=== PATIENT | female | born 1945 | race Caucasian/White ===

== ENCOUNTER 2017-05-11 08:26 | Outpatient (CLI) | payer BC | END 2017-05-11 08:27 | disposition home or self-care (01) | LOC: BICULT 08:26 | PROVIDERS: ATTEND Internal Medicine Gastroenterology | DX: K21.9 Gastro-esophageal reflux disease without esophagitis (principal); R19.4 Change in bowel habit; R14.0 Abdominal distension (gaseous); R11.2 Nausea with vomiting, unspecified | CPT/HCPCS: 76700 ==

== ENCOUNTER 2018-11-18 14:54 | Outpatient (CLI) | payer BC ==
--- NOTE | 2018-11-18 15:46 | RAD ---
CERVICAL SPINE THREE VIEWS: 11/18/18 HISTORY: Chronic neck pain. FINDINGS: C7 is obscured on the lateral view and C1 and C2 odontoid are partially obscured on the AP open mouth study. Generalized disc osteophytosis and facet arthrosis. No prevertebral soft tissue swelling. IMPRESSION: Cervical spondylosis. POS: [facility]
== END 2018-11-18 14:55 | disposition home or self-care (01) ==
LOC: SCSRAD 14:54
PROVIDERS: ATTEND Nurse Practitioner Family
DX: M54.2 Cervicalgia (principal); M47.812 Spondylosis without myelopathy or radiculopathy, cervical region
CPT/HCPCS: 72040

== ENCOUNTER 2020-11-08 14:23 | Outpatient (CLI) | payer BC, MEDICARE | END 2020-11-08 14:24 | disposition home or self-care (01) | LOC: BICMAMMO 14:23 | PROVIDERS: ATTEND Student in an Organized Health Care Education/Training Program | DX: Z13.820 Encounter for screening for osteoporosis (principal); M85.851 Other specified disorders of bone density and structure, right thigh; M85.852 Other specified disorders of bone density and structure, left thigh | CPT/HCPCS: 77080 ==

== ENCOUNTER 2021-03-15 08:08 | Outpatient (CLI) | payer BC, MEDICARE | END 2021-03-15 08:09 | disposition home or self-care (01) | LOC: NM 08:08 | PROVIDERS: ATTEND Internal Medicine Gastroenterology | DX: K21.9 Gastro-esophageal reflux disease without esophagitis (principal); K58.9 Irritable bowel syndrome, unspecified; R10.12 Left upper quadrant pain; R11.2 Nausea with vomiting, unspecified | CPT/HCPCS: 78264; A9541 ==

== ENCOUNTER 2021-12-26 11:22 | Outpatient (CLI) | payer BC, MEDICARE | END 2021-12-26 11:23 | disposition home or self-care (01) | LOC: SCSMRI 11:22 | PROVIDERS: ATTEND Orthopaedic Surgery | DX: M54.50 Low back pain, unspecified (principal); M51.36 Other intervertebral disc degeneration, lumbar region | CPT/HCPCS: 72148 ==

== ENCOUNTER 2022-02-17 10:37 | Outpatient (CLI) | payer BC, MEDICARE ==
[~2022-02-17 10:37] MED LIST: Iopamidol-370 76% 500 ML 1 ML ONE
== END 2022-02-17 10:38 | disposition home or self-care (01) ==
LOC: BICCT 10:37
PROVIDERS: ATTEND Physician Assistant Medical
DX: K21.9 Gastro-esophageal reflux disease without esophagitis (principal); R63.0 Anorexia; R63.4 Abnormal weight loss; N28.89 Other specified disorders of kidney and ureter; R91.8 Other nonspecific abnormal finding of lung field
CPT/HCPCS: 74177; Q9967

== ENCOUNTER 2022-10-21 14:29 | Outpatient (CLI) | payer BC, MEDICARE ==
[~2022-10-21 14:29] MED LIST changes: +Iopamidol 370 76% 100 ML VIAL ONE; -Iopamidol-370 76% 500 ML 1 ML ONE
== END 2022-10-21 14:30 | disposition home or self-care (01) ==
LOC: BICCT 14:29
PROVIDERS: ATTEND Internal Medicine Gastroenterology
DX: R91.8 Other nonspecific abnormal finding of lung field (principal); I70.0 Atherosclerosis of aorta
CPT/HCPCS: 71260; Q9967

== ENCOUNTER 2023-03-17 12:04 | Outpatient (CLI) | payer BC, MEDICARE ==
[2023-03-17 14:05] LABS: Hematocrit 35.3 % (34.9-44.5); Hemoglobin 11.2 g/dL (12.0-15.5); Mean Corpuscular HGB CONC 31.7 g/dL (32.0-36.0); Mean Corpuscular Hemoglobin 28.6 pg (27.0-33.0); Mean Corpuscular Volume 90.1 fl (81.6-98.3); Mean Platelet Volume 9.8 fl (7.4-10.4); Platelet Count 256 10x3/uL (150-450); RBC Distribution Width 13.3 % (11.5-14.5); Red Blood Cell (RBC) Count 3.92 10x6/uL (3.90-5.03); White Blood Cell (WBC) Count 5.5 10x3/uL (3.5-10.5)
[2023-03-17 14:13] LABS: INR-International Normal Ratio 0.9; PTT 27.8 sec (22.0-33.0)
[2023-03-17 14:31] LABS: ALT (SGPT) 28 U/L (8-55); AST (SGOT) 23 U/L (5-34); Albumin 4.5 g/dL (3.4-4.8); Alkaline Phosphatase 63 U/L (40-110); Anion Gap 13 mmol/L (10-20); BUN (Urea Nitrogen) 22 mg/dL (9.8-20.1); Bilirubin, Total 0.2 mg/dL (0.2-1.2); Calc. Creatinine Clearance 0 mL/min (70-130); Calcium 9.3 mg/dL (7.8-10.44); Carbon Dioxide 27 mmol/L (23-31); Chloride 103 mmol/L (98-107); Estimated GFR 78; Glucose 93 mg/dL (83-110); Potassium 4.3 mmol/L (3.5-5.1); Protein, Total 7.5 g/dL (5.8-8.1); Sodium 139 mmol/L (136-145)
== END 2023-03-17 12:05 | disposition home or self-care (01) ==
LOC: LABBT 12:04
PROVIDERS: ATTEND Student in an Organized Health Care Education/Training Program
DX: Z01.818 Encounter for other preprocedural examination (principal); J98.59 Other diseases of mediastinum, not elsewhere classified
CPT/HCPCS: 80053; 85027; 85610; 85730; 93005; 93010

== ENCOUNTER 2023-04-06 13:14 | Outpatient (CLI) | payer BC, MEDICARE | END 2023-04-06 13:15 | disposition home or self-care (01) | LOC: RAD 13:14 | PROVIDERS: ATTEND Student in an Organized Health Care Education/Training Program | DX: J98.59 Other diseases of mediastinum, not elsewhere classified (principal) | CPT/HCPCS: 71046 ==

== ENCOUNTER 2023-04-22 14:02 | Outpatient (CLI) | payer BC, MEDICARE | END 2023-04-22 14:03 | disposition home or self-care (01) | LOC: DTY/OP 14:02 | PROVIDERS: ATTEND Nurse Practitioner Family | DX: Z68.34 Body mass index [BMI] 34.0-34.9, adult (principal) | CPT/HCPCS: 97802 ==

== ENCOUNTER 2024-05-10 12:42 | Outpatient (CLI) | payer BC, MEDICARE | END 2024-05-10 12:43 | disposition home or self-care (01) | LOC: BICMRI 12:42 | PROVIDERS: ATTEND Psychiatry & Neurology Neurology | DX: M48.061 Spinal stenosis, lumbar region without neurogenic claudication (principal); M51.35 Other intervertebral disc degeneration, thoracolumbar region; M47.815 Spondylosis without myelopathy or radiculopathy, thoracolumbar region; M47.816 Spondylosis without myelopathy or radiculopathy, lumbar region; M51.369 Other intervertebral disc degeneration, lumbar region without mention of lumbar back pain or lower extremity pain; M51.379 Other intervertebral disc degeneration, lumbosacral region without mention of lumbar back pain or lower extremity pain; M47.817 Spondylosis without myelopathy or radiculopathy, lumbosacral region; M48.07 Spinal stenosis, lumbosacral region; R93.7 Abnormal findings on diagnostic imaging of other parts of musculoskeletal system; M25.78 Osteophyte, vertebrae | CPT/HCPCS: 72148 ==